=== PATIENT | male | born 1945 | race Caucasian/White ===

== ENCOUNTER → 2017-03-12 | Outpatient (CLI) | payer MEDICARE, BC ==
[~2017-03-12] MED LIST: ACCUPRIL40MGTAB PO; ALLOPURINOL100 MG PO; ASPIRIN E.C. 8181 MG PO; B-121500 MCG PO; CARDENE 20MG CA20 M1 PO; CARDI-OMEGA1000 MG PO; HCTZ 25MG25 MG PO; METOPROLOL50 MG PO; NEXIUM 40MG40 MG PO; PAROXETINE20 MG PO; PAXIL40 MG PO; PLAVIX 75MG TAB75 MG PO; PRIL40 PO; QUINAPRIL40 MG PO; RESTORIL30 MG PO; SIMVASTATIN40 MG PO; TOPROL XL 50MG50 MG PO; ULTRAM 50MG TAB50 MG PO; ZOCOR 40MG40 MG PO; ZYLOPRIM 100MG100 MG PO
== END ==
LOC: COL.RAD 08:15
DX: N20.0 Calculus of kidney (principal); Z85.520 Personal history of malignant carcinoid tumor of kidney; Z90.5 Acquired absence of kidney; R91.8 Other nonspecific abnormal finding of lung field

== ENCOUNTER → 2018-03-18 | Outpatient (CLI) | payer MEDICARE, BC | LOC: COL.RAD 09:59 | DX: Z85.520 Personal history of malignant carcinoid tumor of kidney (principal); Z90.5 Acquired absence of kidney ==

== ENCOUNTER 2018-10-20 08:20 | Day surgery (SDC) | payer MEDICARE, BC ==
[~2018-10-20] VITALS: Ht 182.9 cm; Wt 82.1 kg
[2018-10-20] MEDS ORDERED: TIROSINT50 MC1 PO (08:40)
[2018-10-20] MEDS ORDERED: NORVASC 5MG5 MG/TAB PO (08:40)
[2018-10-20 09:02] VITALS: BP 162/84; PULSE 60; TEMP 97
[2018-10-20 12:01] VITALS: BP 140/75; PULSE 58; TEMP 98.7
[2018-10-20 12:15] VITALS: BP 151/77; PULSE 48
[2018-10-20 12:30] VITALS: BP 150/78; PULSE 48
[2018-10-20 12:45] VITALS: BP 153/78; PULSE 52
== END 2018-10-20 13:15 | disposition home or self-care (01) ==
LOC: SDCO 08:20
DX: K40.90 Unilateral inguinal hernia, without obstruction or gangrene, not specified as recurrent (principal); E78.00 Pure hypercholesterolemia, unspecified; I25.119 Atherosclerotic heart disease of native coronary artery with unspecified angina pectoris; I11.0 Hypertensive heart disease with heart failure; I50.9 Heart failure, unspecified; Z95.1 Presence of aortocoronary bypass graft; Z79.899 Other long term (current) drug therapy; Z80.9 Family history of malignant neoplasm, unspecified; K21.9 Gastro-esophageal reflux disease without esophagitis; K44.9 Diaphragmatic hernia without obstruction or gangrene; Z90.5 Acquired absence of kidney; Z85.528 Personal history of other malignant neoplasm of kidney
CPT/HCPCS: J0690; J2704; J7120

== ENCOUNTER → 2019-03-30 | Outpatient (CLI) | payer MEDICARE, BC ==
[~2019-03-30] MED LIST changes: +NORVASC 5MG5 MG/TAB PO; +TIROSINT50 MC1 PO
== END ==
LOC: COL.RAD 11:08
DX: K57.30 Diverticulosis of large intestine without perforation or abscess without bleeding (principal); K31.89 Other diseases of stomach and duodenum; R91.8 Other nonspecific abnormal finding of lung field; Z90.5 Acquired absence of kidney; Z85.528 Personal history of other malignant neoplasm of kidney